=== PATIENT | female | born 1985 | race American Indian/Alaskan Native ===

== ENCOUNTER 2018-08-10 03:05 | Emergency (ER) | payer SELFPAY ==
[2018-08-10 03:39] VITALS: BP 151/98
== END 2018-08-10 04:25 | disposition left against medical advice (07) ==
LOC: ED 03:05
DX: R42 Dizziness and giddiness (principal); Z53.21 Procedure and treatment not carried out due to patient leaving prior to being seen by health care provider

== ENCOUNTER 2018-08-10 10:40 | Emergency (ER) | payer OTHER ==
[2018-08-10] MEDS ORDERED: NORCO 5/325 PO ONE (12:39)
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
--- NOTE | 2018-08-10 13:11 | XRay Report ---
LEFT TOES, 3 views: History: Pain. On the oblique image only, there is suggestion of a nondisplaced fracture involving the middle phalanx of the fifth toe. No calcified callus is identified. The remaining left toes are intact. No joint pathology. The soft tissues are unremarkable. IMPRESSION: Possible nondisplaced fracture, middle phalanx, fifth toe.
--- NOTE | 2018-08-10 14:11 | Cat Scan Report ---
CT HEAD WITHOUT CONTRAST: HISTORY: Laceration, pain, headache. TECHNIQUE: Sequential 2.5mm CT images. COMPARISON: none. FINDINGS: Cerebral Parenchyma: Within normal limits. Cerebellum: Within normal limits. Brainstem: Within normal limits. Ventricles: Normal. Sella: Normal. Extra-axial spaces: Normal. Basal Cisterns: Normal. Intracranial Hemorrhage: None. Midline Shift: None. Calvarium: Normal. Sinuses: Normal. Mastoid Air Cells: Normal. Visualized Orbits: Normal. IMPRESSION: Cranial CT scan within normal limits.
[2018-08-10 14:54] VITALS: BP 132/56
== END 2018-08-10 14:54 | disposition home or self-care (01) ==
LOC: ED 10:40
DX: S92.912A Unspecified fracture of left toe(s), initial encounter for closed fracture (principal); S01.81XA Laceration without foreign body of other part of head, initial encounter; Y04.8XXA Assault by other bodily force, initial encounter; Y93.89 Activity, other specified; Y92.098 Other place in other non-institutional residence as the place of occurrence of the external cause; Y99.8 Other external cause status
CPT/HCPCS: 70450